=== PATIENT | female | born 1965 | race Caucasian/White ===

== ENCOUNTER 2016-09-17 20:45 | Inpatient (IN) | payer BC ==
[~2016-09-17 20:45] MED LIST: AMBIEN10 MG; AMBIEN10 MG PO; CLONAZEPAM1 MG; CLONAZEPAM1 MG PO; CYMBALTA; CYMBALTA30 MG; CYMBALTA60 MG PO; DEPRESSION PILL; FLEXERIL10 MG PO; IRON1 TA1; IRON325 MG PO; LAMICTAL XR50 MG PO; LEVOTHROID75 MCG; LITHIUM; LITHIUM CARBON450 MG; LITHIUM CARBON450 MG PO; NORCO 5/325 TAB1 TAB PO; OXYCODONE/APAP PO; SYNTHROID100 MC1 PO; SYNTHROID75 MCG PO; THYROID MED; TYLENOL325 MG; TYLENOL500 MG PO; [UNRECOGNIZED DRUG - OTHER]
[2016-09-17 21:26] LABS: BASO % 0.2 % (0-2); HCT-HEMATOCRIT 50.1 % (34.0-49.0); HGB-HEMOGLOBIN 17.1 gm/dl (12.0-15.5); IMMATURE GRANULOCYTES ABSOLUTE 0.01 tho/cmm (0-0.03); IMMATURE GRANULOCYTES PERCENT 0.1 % (0-0.3); LYMPH % 4.5 % (20-45); LYMPH ABSOLUTE COUNT 0.4 tho/cmm (0.8-4.5); MCH (MEAN CORPUSCULAR HGB) 32.4 pg (28.0-32.0); MCHC MEAN CORPUSCULAR HGB CONC 34.1 % (32.0-36.0); MCV (MEAN CELL VOLUME) 94.9 fl (82.0-96.0); MONO % 7.5 % (0-12); MONOCYTE ABSOLUTE COUNT 0.7 tho/cmm (0.0-1.2); NEUTROPHIL ABSOLUTE COUNT 8.4 tho/cmm (1.6-8.0); NEUTROPHIL-AUTOMATED 8.4 tho/cmm (1.6-8.0); NEUTROPHILS % 87.7 % (40-80); PLATELET COUNT 233 tho/cmm (150-450); RED BLOOD COUNT 5.28 mil/cmm (4.00-5.20); RED CELL DISTRIBUTION WIDTH 12.5 % (12.4-16.4); WHITE BLOOD COUNT 9.6 tho/cmm (4.0-10.0)
[2016-09-17 21:37] LABS: PREGNANCY-SERUM NEGATIVE (NEGATIVE)
[2016-09-17 21:44] LABS: ALBUMIN 3.8 g/dl (3.5-5.0); ALCOHOL (ETOH) <10 mg/dl (<10); ALKALINE PHOSPHATASE 84 U/L (33-138); ALT/SGPT 166 U/L (12-78); BILIRUBIN,TOTAL 2.1 mg/dl (0-1.5); BLOOD UREA NITROGEN 15 mg/dl (6-24); CALCIUM 8.6 mg/dl (8.5-10.5); CARBON DIOXIDE-VENOUS 23 mmol/L (22-32); CHLORIDE 107 mmol/l (96-110); CREATININE 0.72 mg/dl (0.50-1.10); GLUCOSE 102 mg/dL (70-110); SODIUM 138 mmol/L (135-145); eGFR VALUE FOR BLACK >90 mL/Min
[2016-09-17 21:47] LABS: ACETAMINOPHEN LEVEL 23.6 ug/ml (10-30); ANION GAP 12 mmol/L (0-20); AST/SGOT 143 U/L (10-40); SALICYLATE <2.8 mg/dl (2.8-20)
[2016-09-17 21:48] LABS: MAGNESIUM 2.1 mg/dl (1.8-2.6)
[2016-09-17] MEDS ORDERED: LEXAPRO20 M2 PO (22:37)
[2016-09-18 03:43] LABS: URINE BILIRUBIN NEGATIVE (NEG); URINE BLOOD SMALL (NEG); URINE GLUCOSE (UA) MODERATE (NEG); URINE KETONE LARGE (NEG); URINE LEUKOCYTE ESTERASE NEGATIVE (NEG); URINE NITRITE NEGATIVE (NEG); URINE PROTEIN MODERATE (NEG); URINE SPECIFIC GRAVITY 1.015 (1.003-1.030)
[2016-09-18 03:46] LABS: URINE APPEARANCE CLEAR; URINE COLOR YELLOW
[2016-09-18 03:51] LABS: URINE RBC 0-1 /[HPF] (0-5); URINE WBC 0-2 /[HPF] (0-5)
[2016-09-18 05:13] LABS: BASO % 0.3 % (0-2); EOS % 0.1 % (0-7); HCT-HEMATOCRIT 43.2 % (34.0-49.0); HGB-HEMOGLOBIN 14.6 gm/dl (12.0-15.5); IMMATURE GRANULOCYTES ABSOLUTE 0.01 tho/cmm (0-0.03); IMMATURE GRANULOCYTES PERCENT 0.1 % (0-0.3); LYMPH ABSOLUTE COUNT 0.7 tho/cmm (0.8-4.5); MCH (MEAN CORPUSCULAR HGB) 31.7 pg (28.0-32.0); MCHC MEAN CORPUSCULAR HGB CONC 33.8 % (32.0-36.0); MCV (MEAN CELL VOLUME) 93.7 fl (82.0-96.0); MEAN PLATELET VOLUME 10.9 cmc (9.4-12.4); MONO % 3.6 % (0-12); MONOCYTE ABSOLUTE COUNT 0.3 tho/cmm (0.0-1.2); NEUTROPHIL ABSOLUTE COUNT 6.6 tho/cmm (1.6-8.0); NEUTROPHIL-AUTOMATED 6.6 tho/cmm (1.6-8.0); NEUTROPHILS % 86.9 % (40-80); PLATELET COUNT 204 tho/cmm (150-450); RED BLOOD COUNT 4.61 mil/cmm (4.00-5.20); RED CELL DISTRIBUTION WIDTH 12.6 % (12.4-16.4); WHITE BLOOD COUNT 7.6 tho/cmm (4.0-10.0)
[2016-09-18 05:36] LABS: ALB/GLOB RATIO 0.9 (0.8-2.0); ALBUMIN 2.8 g/dl (3.5-5.0); ALKALINE PHOSPHATASE 57 U/L (33-138); ANION GAP 14 mmol/L (0-20); BILIRUBIN,TOTAL 1.3 mg/dl (0-1.5); BLOOD UREA NITROGEN 10 mg/dl (6-24); CALCIUM 7.6 mg/dl (8.5-10.5); CARBON DIOXIDE-VENOUS 25 mmol/L (22-32); CHLORIDE 104 mmol/l (96-110); CREATININE 0.66 mg/dl (0.50-1.10); GLUCOSE 128 mg/dL (70-110); POTASSIUM 3.7 mmol/L (3.7-5.1); SODIUM 139 mmol/L (135-145); eGFR VALUE FOR BLACK >90 mL/Min
[2016-09-18 05:50] LABS: ALT/SGPT 312 U/L (12-78); AST/SGOT 289 U/L (10-40)
[2016-09-18 12:47] LABS: INR 1.9 INR (0.9-1.1)
[2016-09-18 16:50] LABS: INR 1.9 INR (0.9-1.1)
[2016-09-18 17:02] LABS: ALB/GLOB RATIO 0.9 (0.8-2.0); ALBUMIN 2.9 g/dl (3.5-5.0); BILIRUBIN,DIRECT 0.4 mg/dl (0.0-0.3); BILIRUBIN,INDIRECT 0.6 mg/dL (0.0-1.0)
[2016-09-19 05:56] LABS: INR 1.8 INR (0.9-1.1)
[2016-09-19 05:59] LABS: BASO % 0.3 % (0-2); EOS % 0.1 % (0-7); HCT-HEMATOCRIT 45.2 % (34.0-49.0); HGB-HEMOGLOBIN 15.8 gm/dl (12.0-15.5); IMMATURE GRANULOCYTES ABSOLUTE 0.02 tho/cmm (0-0.03); IMMATURE GRANULOCYTES PERCENT 0.3 % (0-0.3); LYMPH % 12.3 % (20-45); LYMPH ABSOLUTE COUNT 0.8 tho/cmm (0.8-4.5); MCH (MEAN CORPUSCULAR HGB) 31.7 pg (28.0-32.0); MCV (MEAN CELL VOLUME) 90.8 fl (82.0-96.0); MEAN PLATELET VOLUME 11.1 cmc (9.4-12.4); MONO % 10.6 % (0-12); MONOCYTE ABSOLUTE COUNT 0.7 tho/cmm (0.0-1.2); NEUTROPHIL ABSOLUTE COUNT 5.2 tho/cmm (1.6-8.0); NEUTROPHIL-AUTOMATED 5.2 tho/cmm (1.6-8.0); NEUTROPHILS % 76.4 % (40-80); PLATELET COUNT 227 tho/cmm (150-450); RED BLOOD COUNT 4.98 mil/cmm (4.00-5.20); RED CELL DISTRIBUTION WIDTH 12.7 % (12.4-16.4); WHITE BLOOD COUNT 6.8 tho/cmm (4.0-10.0)
[2016-09-19 06:21] LABS: ALB/GLOB RATIO 0.9 (0.8-2.0); ALBUMIN 3.1 g/dl (3.5-5.0); ALKALINE PHOSPHATASE 74 U/L (33-138); BLOOD UREA NITROGEN 4 mg/dl (6-24); CARBON DIOXIDE-VENOUS 24 mmol/L (22-32); CHLORIDE 108 mmol/l (96-110); CREATININE 0.59 mg/dl (0.50-1.10); GLUCOSE 118 mg/dL (70-110); SODIUM 142 mmol/L (135-145); eGFR VALUE FOR BLACK >90 mL/Min
[2016-09-19 06:25] LABS: ACETAMINOPHEN LEVEL <2.1 ug/ml (10-30); ANION GAP 14 mmol/L (0-20); BILIRUBIN,DIRECT 0.2 mg/dl (0.0-0.3); BILIRUBIN,INDIRECT 0.8 mg/dL (0.0-1.0); POTASSIUM 3.5 mmol/L (3.7-5.1)
[2016-09-19 06:34] LABS: ALT/SGPT 3689 U/L (12-78); AST/SGOT 3645 U/L (10-40)
[2016-09-19 16:36] LABS: INR 1.6 INR (0.9-1.1); PROTHROMBIN TIME 18.5 SECONDS (9.0-13.6)
[2016-09-19 16:50] LABS: ALB/GLOB RATIO 0.8 (0.8-2.0); ALBUMIN 2.6 g/dl (3.5-5.0); BILIRUBIN,DIRECT 0.3 mg/dl (0.0-0.3); BILIRUBIN,TOTAL 0.7 mg/dl (0-1.5)
[2016-09-19 16:51] LABS: BILIRUBIN,INDIRECT 0.4 mg/dL (0.0-1.0)
[2016-09-20 04:18] LABS: INR 1.4 INR (0.9-1.1); PROTHROMBIN TIME 16.6 SECONDS (9.0-13.6)
[2016-09-20 04:26] LABS: ANION GAP 10 mmol/L (0-20); BLOOD UREA NITROGEN 4 mg/dl (6-24); CALCIUM 7.7 mg/dl (8.5-10.5); CARBON DIOXIDE-VENOUS 28 mmol/L (22-32); CHLORIDE 108 mmol/l (96-110); CREATININE 0.56 mg/dl (0.50-1.10); GLUCOSE 108 mg/dL (70-110); POTASSIUM 3.4 mmol/L (3.7-5.1); SODIUM 143 mmol/L (135-145); eGFR VALUE FOR BLACK >90 mL/Min
[2016-09-20 04:41] LABS: ALB/GLOB RATIO 0.8 (0.8-2.0); ALBUMIN 2.6 g/dl (3.5-5.0); BILIRUBIN,DIRECT 0.3 mg/dl (0.0-0.3); BILIRUBIN,INDIRECT 0.5 mg/dL (0.0-1.0); BILIRUBIN,TOTAL 0.8 mg/dl (0-1.5)
== END 2016-09-20 14:00 | DRG 918 ==
LOC: EDMED 20:45 → EMR2 09-18 00:10 → 5WF 09-18 01:18
PROVIDERS: Emergency Medicine; Internal Medicine; Nurse Practitioner; Specialist; ADMIT Family Medicine
DX: T39.1X1A Poisoning by 4-Aminophenol derivatives, accidental (unintentional), initial encounter (principal); K75.89 Other specified inflammatory liver diseases; F32.9 Major depressive disorder, single episode, unspecified; E87.6 Hypokalemia; F41.9 Anxiety disorder, unspecified; E03.9 Hypothyroidism, unspecified; R74.0 Nonspecific elevation of levels of transaminase and lactic acid dehydrogenase [LDH]; F17.220 Nicotine dependence, chewing tobacco, uncomplicated; G43.909 Migraine, unspecified, not intractable, without status migrainosus
CPT/HCPCS: G0480; J2405; J7030